=== PATIENT | male | born 1965 | race Caucasian/White ===

== ENCOUNTER 2016-11-19 14:13 | Emergency (ER) | payer MEDICAID, OTHER ==
[2016-11-19 14:20] VITALS: RESP 18; TEMP 99.9
--- NOTE | 2016-11-19 14:36 | C.PDOC ---
History Of Present Illness <Rehana Burger - Last Filed: 11/19/16 14:46> <Georgia Rubalcava - Last Filed: 11/19/16 16:21> 51 year old male with PMHx of HLD presents with complaint of low back pain that started yesterday after he was lifting floor tiling. The patient was helping his friend with construction of his home. The spasm occurred immediately after he lifted the jessie yesterday afternoon. He states that he took Tylenol 8hr yesterday once and again once this morning but his pain has worsened. It is located in the center of his low back above his sacrum, 10/10 in quality, non- radiating, and worsened with movement of his torso. All other ROS negative at this time. (Georgia Rubalcava) <Rehana Burger - Last Filed: 11/19/16 14:46> History Per: Patient History/Exam Limitations: no limitations Onset/Duration Of Symptoms: Days (1 day ) Current Symptoms Are (Timing): Worse Quality Of Discomfort: Sharp Description Of Injury (Context): occurred while lifting jessie Severity: Severe Pain Scale Rating Of: 10 Previous Symptoms: None Associated Symptoms: None Exacerbating Factor(s): Turning, Movement, Sitting, Standing Recent travel outside of the [place]: No <Gini[place] - Last Filed: 11/19/16 16:21> Time Seen by Provider: 11/19/16 14:36 Chief Complaint (Nursing): Back Pain Past Medical History - Medical History PMH: HIV, Hypercholesterolemia Denies: Chronic Kidney Disease Surgical History: No Surg Hx Family History: States: Unknown Family Hx - Social History Hx Tobacco Use: No Hx Alcohol Use: Yes (sometimes) Hx Substance Use: No - Immunization History Hx Tetanus Toxoid Vaccination: No Hx Influenza Vaccination: No Hx Pneumococcal Vaccination: No <Gini[place]ia - Last Filed: 11/19/16 16:21> Vital Signs: Last Vital Signs Temp 99.9 F H 11/19/16 14:20 Pulse 68 11/19/16 14:20 Resp 18 11/19/16 14:20 BP 127/74 11/19/16 14:20 Pulse Ox 98 11/19/16 16:16 - [facility] Procedures INSPECTION OF LARYNX, ENDO (04/04/16) Review Of Systems Except As Marked, All Systems Reviewed And Found Negative. Musculoskeletal: Positive for: Back Pain <Gini[place]ia - Last Filed: 11/19/16 16:21> Physical Exam - Physical Exam Appears: In Acute Distress (acute pain ) Skin: Normal Color, Warm, Dry Head: Atraumatic, Normacephalic Cardiovascular: Rhythm Regular Respiratory: Normal Breath Sounds Back: Vertebral Tenderness, Muscle Spasm (L2-L5 bilateral paraspinal muscles ), Paraspinal Tenderness (bilateral ) Extremity: Normal ROM Extremity: Bilateral: Atraumatic Neurological/Psych: Oriented x3, Normal Speech, Normal Cognition Pain Response: Withdraws With Pain Gait: Halting (secondary to pain) <Gini[place] - Last Filed: 11/19/16 16:21> ED Course And Treatment O2 Sat by Pulse Oximetry: 98 Progress Note: Given Toradol 60mg IM x1 and Percocet 10/325mg PO x1 which helped relieve patient's symptoms. Reevaluation Time: 16:20 Reassessment Condition: Improved <Gini[place] - Last Filed: 11/19/16 16:21> Supervising Attending Note - Supervising Attending Note Comment: RESIDENT - Attestation: I have personally seen and examined this patient.: Yes I have fully participated in the care of the patient.: Yes I have reviewed all pertinent clinical information: Yes <Rehana Burger - Last Filed: 11/19/16 14:46> <Georgia Rubalcava - Last Filed: 11/19/16 16:21> - Notes: Notes:: R LOWER BACK STRAIN SINCE YEST. ONSET AFTER HEAVY LIFTING. LIMITED RELIEF W TYLENOL. EXAM ABOVE (Rehana Burger) Disposition <Rehana Burger - Last Filed: 11/19/16 14:46> Discussed With : Rehana Burger Doctor Will See Patient In The: Office Counseled Patient/Family Regarding: Diagnosis, Need For Followup, Rx Given - Disposition Disposition Time: 16:21 - POA Present On Arrival: None <Georgia Rubalcava - Last Filed: 11/19/16 16:21> - Disposition Referrals: [facility] [Outside] [facility] [Outside] Disposition: HOME/ ROUTINE Condition: IMPROVED Additional Instructions: Discharged home on pain medications to be taken as prescribed. Follow up with [facility] for further care and to establish care. Prescriptions: Cyclobenzaprine [Flexeril] 10 mg PO HS #10 tab Naproxen 500 mg PO BID #28 tab Instructions: Low Back Strain (DC) Forms: Gen Discharge Inst [place] Print Language: BENGALI - Clinical Impression Clinical Impression: Low back pain
[2016-11-19] MEDS ORDERED: Oxycodone/Acetaminophen 5/325 mg Tab PO STA (15:06)
[2016-11-19] MEDS ORDERED: Oxycodone/Acetaminophen 5/325 mg Tab ONE (15:12)
[2016-11-19 16:32] VITALS: BP 118/75; PULSE 58
[2016-11-19 16:56] VITALS: O2SAT 98
== END 2016-11-19 16:32 | disposition home or self-care (01) ==
LOC: C.ER 14:13
DX: M54.5 Low back pain (principal)